=== PATIENT | female | born 1945 | race Caucasian/White ===

== ENCOUNTER → 2017-03-01 | Outpatient (CLI) | payer BC ==
[~2017-03-01] MED LIST: ANAS1TAB19 PO
[2017-03-01 12:56] VITALS: BP 95/63; PULSE 84; TEMP 36.7; O2SAT 95
--- NOTE | 2017-03-01 13:50 | Radiation Oncology Follow-Up ---
Radiation Oncology Follow-Up Date of Visit Mar 01, 2017. Reason For Visit Annual follow-up Radiation Completion Date 06/17/15 Diagnosis (1) Malignant neoplasm of central portion of female breast Status: Resolved Onset Date: 04/30/2013 Histology Subtype: ductal Permanent Comment: Abnormal left breast mammogram Status post biopsy 04/30/2013 revealing invasive carcinoma grade 3 Estrogen receptor positive, progesterone receptor positive, HER-2/juan positive Status post left mastectomy and sentinel lymph node biopsy 07/12/2013 Pathologic stage [id number] Patient declined chemotherapy and radiation Left axillary recurrence 04/04/2014 Estrogen receptor positive progesterone receptor negative HER-2/juan positive Status post systemic chemotherapy ACT plus trastuzumab plus peruzumab neoadjuvant therapy from 07/07/2014 to 12/08/2014 Annual trip to [place] Left axillary lymph node dissection 03/10/2015 0 of 7 nodes negative Status post completion of radiation therapy to the left chest wall, supraclavicular area, and axilla 06/17/2015 received 6120 cGy Last Edited By: Roberta Rodas on Jun 19, 2015 15:08 History of Present Illness Ms Barrera is a 68-year-old female who underwent bilateral digital screening mammogram on 04/11/2013. This was compared to her prior study dated 04/10/2012. There were noted stable benign calcifications with a new density identified in the left breast at the 7:00 anterior depth. No other significant masses, calcifications or other findings are seen in either breast. This was given a BI-RADS Category 0 with additional imaging studies recommended. On 04/23/2013 patient underwent a unilateral left digital diagnostic mammogram and targeted left ultrasound. This showed a new irregular 1.0 x 1.3 cm mass with a spiculated margin in the left breast central to the nipple anterior depth. This corresponded to the ultrasound findings. Also noted is axillary adenopathy associated with the mass measuring 1.5 cm. This was felt to be highly suspicious for malignancy and was given a BI-RADS Category 5 with biopsy recommended. On 04/30/2013 multiple ultrasound-guided biopsy of the left breast were performed with marking device is inserted and post digital mammographic imaging performed. The biopsies included the 1.3 cm left breast mass located central to the nipple anterior depth and of a 1.8 cm lymph node located in the left axillary tail. Evaluation of the tissue from the left breast 9 o'clock position retroareolar abnormality revealed an invasive carcinoma Rosana grade 3 of 3. Estrogen receptors positive (100%, strong intensity). Progesterone receptor positive (5%, week intensity). HER-2/juan overexpression positive (score: 3+) Ki-67 proliferation index was markedly elevated at 70%. No lymphovascular or perineural invasion was identified. FISH analysis showed HER-2/juan amplification confirming the positive results obtained by immunohistochemistry. The biopsy of the left axillary tail node revealed hemorrhage and adipose tissue with no carcinoma or lymph node tissue identified. Case: [id number]. The patient was seen by Dr. Mejía to discuss treatment options. She underwent staging MRIs performed at [facility]. These demonstrated the suspicious lesion located in the left breast subareolar position at 9:00 as well as several lymph nodes in the left axilla which contained abnormal appearance suspicious for neoplastic disease. The patient was seen at the [facility] . She was seen by Dr. Addison who recommended consideration of breast conserving therapy with a partial mastectomy followed by radiation. She also recommended consideration of a reduction mammoplasty on the right. At the time the patient did not wish to see radiation oncologist and did not wish to receive radiation and therefore opted for to proceed with a left breast mastectomy with sentinel node biopsy. She ultimately underwent a left breast mastectomy and sentinel lymph node biopsy on 07/12/[address] Laird 07/12/2013. This revealed an invasive ductal carcinoma grade 3. The lesion measured 0.9 cm. The margins were uninvolved by invasive carcinoma with the distance to closest margin at 5 cm. A total of 5 sentinel Patient: CHERYL BARRERA Admit Date: 04/16/14 [facility] Rec: [id number] Acct ID: [id number] Page: 1 lymph nodes were taken. All 5 lymph nodes were negative for malignancy. Patient had a final stage pTIb pN 0 (i -). Accession #: [id number]. Recommendation at that time was 4 consideration of adjuvant chemotherapy and subsequent hormonal therapy. The patient declined to consider any hormonal therapy and declined to consider systemic chemotherapy. She wished to go to [place] for the winter season and plan to return at the end of January. She wanted to take time to consider treatment options and its implication prior to proceeding with any adjuvant therapy the patient had evidence of low bone density and was a candidate for consideration of Fosamax therapy. This was recommended and the patient declined this therapy. The patient recovered well from her surgery and returned for follow-up with Dr. Mejía on 03/13/2014. She had presented with some chest pain in February and underwent a chest x-ray on 2013. This showed a 5 mm nodular density within the right lung apex favoring a calcified granuloma. Also noted were surgical clips within the left axilla. She went on to have a CT angiogram of the chest abdomen and pelvis. This showed no pleural or pericardial effusions and no mediastinal or hilar lymphadenopathy. Noted was a single enlarged left axillary lymph node measuring 1.9 x 1.4 cm. Also noted was a 3 mm nodule within the left upper lobe of doubtful clinical significance. A slightly distended gallbladder and common bile duct were noted. A thickened an enhancing endometrium was appreciated. Further evaluation was suggested based on clinical symptoms. A thoracic spine CT scan showed mild degenerative disc disease throughout the thoracic spine with no fractures, suspicious lytic or blastic osseous lesions identified. On 04/04/2014 Dr. Mejía had arranged for a core needle biopsy of the left axillary lymph node. Unfortunately this revealed a poorly differentiated metastatic carcinoma consistent with metastatic adenocarcinoma of breast origin. Case: [id number]. This tumor was again ER positive, SC negative and reveals overexpression of HER-2/ juan protein. The cells were also positive by FISH for HER-2/juan amplification. Case: [id number] An Oncotype DX evaluation was recommended and patient declined. She also declined discussion of proposed adjuvant chemotherapy or hormonal therapy. She declined placement of an a port. She declined referral to the nursing staff for chemotherapy teaching. She wished to take a more homeopathic route but did agree to see and discuss adjuvant radiation and is for that reason the patient is being seen in referral. She underwent radiation therapy to the left chest wall, supra-clavicular area, and axilla. Radiation was completed 06/17/2015. She received 6120 cGy. Interim History She's been doing well over this past year. She denies any changes to her chest wall. She has noted no masses or tenderness and no change of the axilla. She has no swelling of her arm. She is on anastrozole. She states that she'll have some mild hot flashes for approximately 1 hour after taking the medication and then these resolved. She continues follow-up with medical oncology. She has had a recheck mammogram of her right breast. That was performed 2015. There is no mammographic evidence of malignancy of the right breast. BI- RADS Category 2. She is scheduled for recheck mammography in April. Allergies Coded Allergies: Iodinated Diagnostic Agents (Verified Allergy, Intermediate, Rash - Magnevist, 12/01/14) Adhesives (Verified Adverse Reaction, Mild, ., 12/01/14) Home Medications Scheduled Anastrozole (Arimidex), 1 MG PO DAILY Review of Systems Gastrointestinal: Symptoms: WNL Oral: Symptoms: No Problems Respiratory: Symptoms: WNL Urinary: Symptoms: WNL Skin: Symptoms: No Problems Breast: Right Upper Arm Measurement: 32.0 Right Mid Arm Measurement: 24.3 Right Wrist Measurement: 16.0 Left Upper Arm Measurement: 30.8 Left Mid Arm Measurement: 24.0 Left Wrist Measurement: 15.8 Arm Dominence: Right Physical Exam Vital Signs Date Time Temp Pulse Resp B/P (MAP) Pulse Ox O2 Delivery O2 Flow Rate FiO2 03/01/17 12:56 36.7 84 16 95/63 95 Fatigue: None General Appearance: no apparent distress Eyes: normal inspection, EOMI ENT: normal ENT inspection, hearing grossly normal Neck: supple, no adenopathy, thyroid normal Respiratory/Chest: lungs clear, no respiratory distress, no accessory muscle use Breast: Breast examination reveals status post mastectomy on the left. There are no masses or tenderness and no axillary adenopathy. There is slight telangiectasia. Using the [place] score cosmesis she has a good outcome. The right breast showed no masses or tenderness and no axillary adenopathy. Cardiovascular: regular rate, rhythm, no gallop, no murmur Extremities: no pedal edema Neurologic/Psychiatric: no motor/sensory deficits, alert, normal mood/affect Skin: warm/dry Laboratory Studies Test 02/14/17 08:35 White Blood Count 5.11 K/uL (4.8-10.8) Red Blood Count 4.71 M/uL (4.2-5.4) Hemoglobin 14.8 g/dL (12.0-16.0) Hematocrit 43.8 % (37-47) Mean Corpuscular Volume 93.0 fL (80-100) Mean Corpuscular Hemoglobin 31.4 pg (25-34) Mean Corpuscular Hemoglobin Concent 33.8 g/dl (32-36) Platelet Count 192 K/uL (130-400) Mean Platelet Volume 9.5 fL (7.4-10.4) Neutrophils (%) (Auto) 73.8 % Lymphocytes (%) (Auto) 17.4 % Monocytes (%) (Auto) 3.3 % Eosinophils (%) (Auto) 5.3 % Basophils (%) (Auto) 0.2 % Neutrophils # (Auto) 3.77 K/uL (1.4-6.5) Lymphocytes # (Auto) 0.89 K/uL (1.2-3.4) Monocytes # (Auto) 0.17 K/uL (0.11-0.59) Eosinophils # (Auto) 0.27 K/uL (0-0.5) Basophils # (Auto) 0.01 K/uL (0-0.2) RDW Standard Deviation 43.8 fL (36.4-46.3) RDW Coefficient of Variation 12.8 % (11.5-14.5) Immature Granulocyte % (Auto) 0.0 % Immature Granulocyte # (Auto) 0.00 K/uL (0.00-0.02) Sodium Level 144 mmol/L (136-145) Potassium Level 4.1 mmol/L (3.5-5.1) Chloride Level 108 mmol/L (98-107) Carbon Dioxide Level 30 mmol/L (21-32) Anion Gap 6.0 mmol/L (3-11) Blood Urea Nitrogen 16 mg/dl (7-18) Creatinine 0.66 mg/dl (0.60-1.20) Est Creatinine Clear Calc Drug Dose 74.2 ml/min Estimated GFR () 103.7 Estimated GFR (Non- 89.5 BUN/Creatinine Ratio 23.7 (10-20) Random Glucose 111 mg/dl (70-99) Calcium Level 9.0 mg/dl (8.5-10.1) Total Bilirubin 0.4 mg/dl (0.2-1) Aspartate Amino Transferase (AST) 12 U/L (15-37) Alanine Aminotransferase (ALT) 21 U/L (12-78) Alkaline Phosphatase 113 U/L (45-117) Total Protein 6.8 gm/dl (6.4-8.2) Albumin 3.7 gm/dl (3.4-5.0) Globulin 3.1 gm/dl (2.5-4.0) Albumin/Globulin Ratio 1.2 (0.9-2) Additional Studies UNILATERAL RIGHT DIGITAL SCREENING MAMMOGRAM 3D/2D WITH CAD: 04/21/2016 CLINICAL HISTORY: Asymptomatic Personal History of Breast Cancer. Comparison is made to exams dated: 04/17/2015 mammogram, 04/14/2014 mammogram, 04/30 ultrasound biopsy, 04/23/2013 ultrasound, 04/23/2013 mammogram, and 2010 mammogram - [facility]. FINDINGS: Right CC and MLO 2-D and tomosynthesis images were obtained. The tissue of the right breast is almost entirely fatty. Current study was also evaluated with a Computer Aided Detection (CAD) system. There are no suspicious masses, calcifications, or areas of architectural distortion noted in the right breast. There has been no significant interval change compared to prior exams. Benign-appearing right breast calcifications are not significantly changed. The patient is status post left mastectomy. IMPRESSION: ACR BI-RADS CATEGORY 2: BENIGN There is no mammographic evidence of malignancy in the right breast. A 1 year screening mammogram is recommended. The patient will receive written notification of the results. Approximately 10% of breast cancers are not detected with mammography. A negative mammographic report should not delay biopsy if a clinically suggestive mass is present. Louise Ribera M.D. ah/:04/21/2016 11:43:22 Director Of Design: Padmini MALLOY(Theodora)(M), [facility] letter sent: Normal 1/2 BI-RADS Code: ACR BI-RADS Category 2: Benign Dictated by: Louise Ribera MD Signed by: Louise Ribera MD Assessment & Plan Plan: Continue with scheduled mammography. Continue on anastrozole. Continue follow-up with her primary care physician and Dr. Price. She continues follow -up with her breast surgeon. We asked her to return to our office in 1 year. She may call if she has any questions or concerns in the interim. Total Time In Follow-Up I spent 20 minutes speaking to the patient and performing examination. I set 15 minutes reviewing information and completing this note. Copy To Alden Price D.O.; Mynor Sahu, DO; Marco Antonio Nelson M.D.; Sarah Baron M.D. Problem Qualifiers (1) Malignant neoplasm of central portion of female breast: Estrogen receptor status: positive Laterality: left Qualified Codes: C50.112 - Malignant neoplasm of central portion of left female breast; Z17.0 - Estrogen receptor positive status [ER+]
== END | disposition home or self-care (01) ==
LOC: C.ONC 12:36
PROVIDERS: ATTEND Physician Assistant Medical
DX: Z08 Encounter for follow-up examination after completed treatment for malignant neoplasm (principal); Z92.3 Personal history of irradiation; Z85.3 Personal history of malignant neoplasm of breast

== ENCOUNTER → 2017-03-23 | Outpatient (CLI) | payer BC | END | disposition home or self-care (01) | LOC: C.MAMM 09:00 | PROVIDERS: ATTEND Internal Medicine Hematology & Oncology | DX: C50.919 Malignant neoplasm of unspecified site of unspecified female breast (principal); M81.0 Age-related osteoporosis without current pathological fracture; M85.851 Other specified disorders of bone density and structure, right thigh; M85.852 Other specified disorders of bone density and structure, left thigh; M85.88 Other specified disorders of bone density and structure, other site ==

== ENCOUNTER → 2017-04-25 | Outpatient (CLI) | payer BC ==
--- NOTE | 2017-04-25 14:37 | MAMMOGRAPHY REPORT ---
UNILATERAL RIGHT DIGITAL SCREENING MAMMOGRAM TOMOSYNTHESIS WITH CAD: 04/25/2017 CLINICAL HISTORY: Asymptomatic. Personal history of breast cancer. TECHNIQUE: Right breast tomosynthesis in addition to standard 2D mammography was performed. Current maicol palmer was also evaluated with a Computer Aided Detection (CAD) system. COMPARISON: Comparison is made to exams dated: 04/21/2016 mammogram, 04/17/2015 mammogram, 04/14/2014 marlena mogram, 04/23/2013 mammogram, 04/11/2013 mammogram, and 04/10/2012 mammogram - [facility] er. BREAST COMPOSITION: The tissue of the right breast is almost entirely fatty. FINDINGS: The hub of a Mediport catheter is seen on the axillary tail right MLO view. There are stab le benign-appearing microcalcifications in the anterior right breast. No new suspicious mass, ata ectural distortion or cluster of microcalcifications is seen. IMPRESSION: ACR BI-RADS CATEGORY 1: NEGATIVE There is no mammographic evidence of malignancy. A 1 year screening mammogram is recommended. The pa tient will receive written notification of the results. Approximately 10% of breast cancers are not detected with mammography. A negative mammographic report should not delay biopsy if a clinically suggestive mass is present. Sonia Garrido M.D. ay/:04/25/2017 11:32:57 Vb Developer: Heavenly MALLOY(Theodora)(M), [facility] letter sent: Normal 1/2 BI-RADS Code: ACR BI-RADS Category 1: Negative
== END | disposition home or self-care (01) ==
LOC: C.MAMM 10:00
PROVIDERS: ATTEND Internal Medicine Hematology & Oncology
DX: Z12.31 Encounter for screening mammogram for malignant neoplasm of breast (principal)

== ENCOUNTER → 2017-05-08 | Outpatient (CLI) | payer BC ==
--- NOTE | 2017-05-08 10:27 | DIAGNOSTIC IMAGING REPORT ---
CHEST 2 VIEWS ROUTINE CLINICAL HISTORY: 71 years-old Female presenting with BREAST CA. TECHNIQUE: PA and lateral views of the chest were obtained. COMPARISON: 03/02/2014. FINDINGS: Right internal jugular Mediport terminates in the SVC. Cardiomediastinal silhouette normal. Left axillary surgical clips noted. Lungs and pleural spaces clear. Degenerative changes of the spine. Cholecystectomy clips noted. IMPRESSION: 1. No acute cardiopulmonary disease. Electronically signed by: Joseluis Lancaster M.D. 05/08/2017 10:26 AM Dictated Date/Time: 05/08/2017 10:25 AM
== END | disposition home or self-care (01) ==
LOC: C.RAD 09:54
PROVIDERS: ATTEND Internal Medicine Hematology & Oncology
DX: C50.412 Malignant neoplasm of upper-outer quadrant of left female breast (principal)

== ENCOUNTER → 2017-08-17 | Outpatient (CLI) | payer BC ==
--- NOTE | 2017-08-17 10:56 | DIAGNOSTIC IMAGING REPORT ---
L-SPINE MIN 4 VIEWS ROUTINE CLINICAL HISTORY: BREAST CANCER C50.412 acute onset low back pain COMPARISON STUDY: No previous studies for comparison. FINDINGS: There is no pathologic bowel dilatation. There are surgical clips within the right upper quadrant consistent with a prior cholecystectomy. The bones are osteopenic. There is a lumbar levoscoliosis. No acute fractures or traumatic subluxations are visualized. There is facet joint arthropathy, most pronounced at the L5-S1 level. IMPRESSION: 1. Levoscoliosis 2. Osteopenia 3. No acute fractures or traumatic subluxations are visualized. Electronically signed by: Maury Way M.D. 08/17/2017 10:54 AM Dictated Date/Time: 08/17/2017 10:54 AM
== END | disposition home or self-care (01) ==
LOC: C.RAD 10:29
PROVIDERS: ATTEND Nurse Practitioner Family
DX: C50.412 Malignant neoplasm of upper-outer quadrant of left female breast (principal); M85.88 Other specified disorders of bone density and structure, other site; M41.86 Other forms of scoliosis, lumbar region

== ENCOUNTER → 2017-09-01 | Outpatient (CLI) | payer BC ==
--- NOTE | 2017-09-01 13:55 | DIAGNOSTIC IMAGING REPORT ---
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 TECHNIQUE: Planar anterior and posterior whole body imaging was performed 3 hours following the intravenous administration of radiotracer. Radiotracer: 27 mCi Tc-99m MDP. COMPARISON: 04/22/2014. FINDINGS: Minimal focal activity at the proximal right femoral metaphysis at the site of known fibrous dysplasia. Slight interval increase in focal radiotracer uptake at the bilateral knees and left ankle mortise most likely degenerative in etiology. 2-3 separate consecutive left anterior ribs demonstrate focal radiotracer uptake. This is distributed in a perpendicular fashion to the long axis of the ribs most consistent with rib fractures. Focal radiotracer uptake also noted at the sternoclavicular articulations, likely degenerative in etiology. Mild activity noted in the spine most prominently in the lumbar spine, where there is levocurvature. The degree of radiotracer activity is more consistent with degenerative change. No focal lesion in the spine is apparent. IMPRESSION: 1. No convincing evidence of osseous metastatic disease. 2. Mild radiotracer activity associated with the lumbar spine with levoscoliosis. This is most likely degenerative in etiology. No focal spinous lesion. 3. Findings suspicious for left anterior rib fractures. 4. 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 5. Additional degenerative changes as above. Electronically signed by: Joseluis Lancaster M.D. 09/01/2017 1:53 PM Dictated Date/Time: 09/01/2017 1:47 PM
== END | disposition home or self-care (01) ==
LOC: C.NUCL 09:33
PROVIDERS: ATTEND Nurse Practitioner
DX: M54.9 Dorsalgia, unspecified (principal); M85.051 Fibrous dysplasia (monostotic), right thigh

== ENCOUNTER → 2018-04-11 | Outpatient (CLI) | payer BC ==
[~2018-04-11] MED LIST changes: -ANAS1TAB19 PO; +Pt states none
[2018-04-11 10:18] LABS: BASO % 0.2 %; BASO ABS # 0.01 K/uL (0-0.2); EOS % 5.6 %; EOS ABS # 0.28 K/uL (0-0.5); HEMATOCRIT 45.1 % (37-47); IG# 0.01 K/uL (0.00-0.02); LYMPH % 20.4 %; LYMPH ABS # 1.02 K/uL (1.2-3.4); MEAN CELL VOLUME 90.7 fL (80-100); MEAN CORPUSCULAR HEMOGLOBIN 30.2 pg (25-34); MEAN CORPUSCULAR HGB CONC 33.3 g/dl (32-36); MEAN PLATELET VOLUME 9.4 fL (7.4-10.4); MONO % 6.8 %; MONO ABS # 0.34 K/uL (0.11-0.59); NEUT % 66.8 %; NEUT ABS # 3.35 K/uL (1.4-6.5); PLATELET COUNT 176 K/uL (130-400); RED CELL DISTRIBUTION WIDTH CV 12.9 % (11.5-14.5); RED CELL DISTRIBUTION WIDTH SD 42.2 fL (36.4-46.3); WHITE BLOOD COUNT 5.01 K/uL (4.8-10.8)
[2018-04-11 10:38] LABS: ALBUMIN 3.7 gm/dl (3.4-5.0); ALKALINE PHOSPHATASE 99 U/L (45-117); ALT/SGPT 21 U/L (12-78); AST/SGOT 11 U/L (15-37); BLOOD UREA NITROGEN 14 mg/dl (7-18); CALCIUM 8.8 mg/dl (8.5-10.1); CARBON DIOXIDE 25 mmol/L (21-32); CREATININE 0.65 mg/dl (0.60-1.20); GLUCOSE 89 mg/dl (70-99); POTASSIUM 4.2 mmol/L (3.5-5.1); SODIUM 139 mmol/L (136-145)
== END | disposition home or self-care (01) ==
LOC: C.LABSPEC 09:36
PROVIDERS: ATTEND Nurse Practitioner Family
DX: C50.412 Malignant neoplasm of upper-outer quadrant of left female breast (principal)

== ENCOUNTER → 2018-04-26 | Outpatient (CLI) | payer BC ==
--- NOTE | 2018-04-26 15:43 | MAMMOGRAPHY REPORT ---
UNILATERAL RIGHT DIGITAL SCREENING MAMMOGRAM TOMOSYNTHESIS WITH CAD: 04/26/2018 CLINICAL HISTORY: Asymptomatic. Personal history of breast cancer. TECHNIQUE: The study was acquired using full field digital technology and interpreted from soft copy. Breast tomosynthesis in addition to standard 2D mammography was performed. Current study was also ev aluated with a Computer Aided Detection (CAD) system. COMPARISON: Comparison is made to exams dated: 04/25/2017 mammogram, 04/21/2016 mammogram, 04/17/2015 ma mmogram, 04/14/2014 mammogram, 04/11/2013 mammogram, and 04/10/2012 mammogram - [facility] er. BREAST COMPOSITION: The tissue of right breast is almost entirely fatty. FINDINGS: There are no suspicious masses, calcifications, or areas of architectural distortion noted in the rig ht breast. There has been no significant interval change compared to prior exams. IMPRESSION: ACR BI-RADS CATEGORY 1: NEGATIVE There is no mammographic evidence of malignancy in the right breast. A 1 year screening mammogram is recommended.(04/27/2019) The patient will receive written notification of the results. Some breast cancers are not detected with mammography. A negative mammographic report should not abner y biopsy if a clinically suggestive mass is present. Louise Ribera M.D. ah/:04/26/2018 12:39:07 Data Entry: RT Nisa(Theodora)(M), [facility] letter sent: Normal 1/2 BI-RADS Code: ACR BI-RADS Category 1: Negative
== END | disposition home or self-care (01) ==
LOC: C.MAMM 10:13
PROVIDERS: ATTEND Family Medicine
DX: Z12.31 Encounter for screening mammogram for malignant neoplasm of breast (principal); Z80.3 Family history of malignant neoplasm of breast